=== PATIENT | female | born 1990 | race Caucasian/White ===

== ENCOUNTER 2019-08-21 13:55 | Emergency (ER) | payer OTHER ==
[~2019-08-21] VITALS: Ht 162.6 cm; Wt 86.2 kg
== END 2019-08-22 10:34 | disposition home or self-care (01) ==
LOC: ER 13:55
DX: O00.81 Other ectopic pregnancy with intrauterine pregnancy (principal); O08.1 Delayed or excessive hemorrhage following ectopic and molar pregnancy; O36.80X1 Pregnancy with inconclusive fetal viability, fetus 1; O26.851 Spotting complicating pregnancy, first trimester; O26.891 Other specified pregnancy related conditions, first trimester; R55 Syncope and collapse
CPT/HCPCS: 76816; 76817 ×3; 93005; G0379; G0378

== ENCOUNTER 2020-02-05 09:17 | Inpatient (IN) | payer OTHER ==
[~2020-02-05] VITALS: Ht 162.6 cm; Wt 94.8 kg
[2020-02-05] MEDS ORDERED: PRENATAL CAPLE1 EAC1 PO (13:31)
== END 2020-02-07 13:57 | disposition home or self-care (01) | DRG 833 ==
LOC: LDR 09:17 → OB/GYN 09:17
PROVIDERS: ADMIT Obstetrics & Gynecology; ATTEND Obstetrics & Gynecology
PROC: 4A1HXCZ Monitoring of Products of Conception, Cardiac Rate, External Approach (ICD-10-PCS; principal; 2020-02-05)
DX: O24.410 Gestational diabetes mellitus in pregnancy, diet controlled (principal); Z20.828 Contact with and (suspected) exposure to other viral communicable diseases
CPT/HCPCS: 240

== ENCOUNTER 2020-04-06 17:19 | Inpatient (IN) | payer OTHER ==
[~2020-04-06] VITALS: Ht 162.6 cm; Wt 95.7 kg
[~2020-04-06 17:19] MED LIST: PRENATAL CAPLE1 EAC1 PO
== END 2020-04-09 14:31 | disposition home or self-care (01) | DRG 807 ==
LOC: LDR 17:19 → OB/GYN 04-07 08:14
PROVIDERS: ADMIT Obstetrics & Gynecology; ATTEND Obstetrics & Gynecology
PROC: 4A0HXFZ Measurement of Products of Conception, Cardiac Rhythm, External Approach (ICD-10-PCS; 2020-04-06)
PROC: 10E0XZZ Delivery of Products of Conception, External Approach (ICD-10-PCS; principal; 2020-04-07)
PROC: 0KQM0ZZ Repair Perineum Muscle, Open Approach (ICD-10-PCS; 2020-04-07)
DX: O70.1 Second degree perineal laceration during delivery (principal); Z37.0 Single live birth; O13.4 Gestational [pregnancy-induced] hypertension without significant proteinuria, complicating childbirth; O24.420 Gestational diabetes mellitus in childbirth, diet controlled; Z3A.37 37 weeks gestation of pregnancy; Z20.828 Contact with and (suspected) exposure to other viral communicable diseases